=== PATIENT | female | born 1965 | race Caucasian/White ===

== ENCOUNTER → 2023-12-10 07:00 | Outpatient (REF) | payer OTHER, SELFPAY | LOC: HWRAD 07:00 | PROVIDERS: ATTENDING PHYSICIAN Nurse Practitioner Adult Health | DX: M25.431 Effusion, right wrist (principal); Z12.31 Encounter for screening mammogram for malignant neoplasm of breast | CPT/HCPCS: 76882; 77063; 77067 ==

== ENCOUNTER → 2024-03-10 07:00 | Outpatient (REF) | payer OTHER, SELFPAY | LOC: HWRAD 07:00 | PROVIDERS: ATTENDING PHYSICIAN Nurse Practitioner Adult Health | DX: G44.209 Tension-type headache, unspecified, not intractable (principal); M54.2 Cervicalgia | CPT/HCPCS: 72050 ==

== ENCOUNTER → 2024-08-09 18:00 | Outpatient (REF) | payer OTHER, SELFPAY | LOC: RAD 18:00 | PROVIDERS: ATTENDING PHYSICIAN Nurse Practitioner Adult Health | DX: R07.81 Pleurodynia (principal); R07.9 Chest pain, unspecified; Z91.81 History of falling | CPT/HCPCS: 71101 ==

== ENCOUNTER 2024-12-31 17:58 | Emergency (ER) | payer OTHER, SELFPAY ==
[2024-12-31 18:00] VITALS: BP 160/95
[2024-12-31 18:38] LABS: % Basophils 1.4 % (0-2); % Eosinophils 1.9 % (0-6); % Immature Granulocytes 0.2 % (0-0.5); % Lymphocytes 27.4 % (20.5-51.1); % Monocytes 9.8 % (1.7-9.3); % Neutrophils 59.3 % (42.2-75.2); Absolute Basophils 0.1 10^3/uL (0-0.2); Absolute Eosinophils 0.1 10^3/uL (0-0.7); Absolute Lymphocytes 1.6 10^3/uL (1.2-3.4); Absolute Monocytes 0.6 10^3/uL (0.1-0.6); Absolute Neutrophils 3.4 10^3/uL (1.4-6.5); Hematocrit 40.6 % (37.0-47.0); Hemoglobin 14.2 g/dL (12.0-16.0); Mean Corpuscular Hgb 30.3 pg (27.0-31.0); Mean Corpuscular Volume 86.6 fL (81.0-99.0); Mean Platelet Volume 8.7 fL (7.4-10.4); Nucleated Red Blood Cells % 0 %; Platelet Count 214 10^3/uL (130-400); Red Blood Cell Count 4.69 10^6/uL (4.20-5.40); Red Cell Dist. Width 11.7 % (11.5-14.5); White Blood Cell Count 5.7 10^3/uL (4.8-10.8)
[2024-12-31 18:53] LABS: ALT (SGPT) 26 U/L (0-35); AST (SGOT) 25 U/L (14-36); Alkaline Phosphatase 76 U/L (38-126); Blood Urea Nitrogen 17 mg/dl (7-17); Calcium 9.5 mg/dl (8.4-10.2); Carbon Dioxide 25 mmol/L (22-30); Chloride 107 mmol/L (98-107); Glucose 99 mg/dl (70-99); Potassium 3.8 mmol/L (3.5-5.1); Sodium 140 mmol/L (135-145); Total Bilirubin 0.3 mg/dl (0.2-1.3); Total Protein 7.1 g/dl (6.3-8.2); eGFR > 60.00
[2024-12-31 19:03] LABS: Troponin I < 0.012 ng/ml
--- NOTE | 2024-12-31 22:02 | ED.GENMED ---
History of Present Illness
General
Chief Complaint: Heart Rate Problem
Source: patient
Time Seen by Provider: 12/31/24 21:55
History of Present Illness
History of Present Illness:
59-year-old female presents to the emergency room complaining of palpitations. Patient states these occur randomly. She feels like her heart is racing though she does have a watch which measures her heart rate and it is not actually fast. She
sometimes feels like there is bands around her arms legs neck and chest. All of the symptoms are not present at the time of my evaluation. Patient denies significant caffeine use that she does drink some diet erika. She did not have any shortness
of breath.
Past History
Past History
ED Past Medical History: None
ED Past Surgical History: Gynecological and Orthopedic
Social History
Tobacco: Non-smoker
Phy Exam
Physical Exam
Physical Exam:
General: Awake, Alert, Oriented X3. No acute distress.
Vitals: unremarkable
Head: Atraumatic
Eyes: Pupils equal, EOMI
Throat: Airway intact, no exudates
Neck: Trachea midline, no thyromegaly
Lungs: Clear and equal b/l
Heart: Regular rate, no murmurs
Abd: Soft, Nontender, No pulsatile mass
Neuro: Nonfocal
Skin: Warm, dry, no rash
Extremities: pulses equal b/l, no edema
Course
Orders/Labs/Results
Orders:
Orders
12/31/24 18:05
ECG [Electrocardiogram (*1)] Urgent
Reason for Study: Palpitations
EKG- Treatment ONCE
12/31/24 18:15
Complete Blood Count/With Diff Urgent
Comprehensive Metabolic Panel Urgent
Troponin I Urgent
Abnormal Lab Results
12/31/24
18:15
Monocytes % 9.8 H %
(1.7-9.3)
12/31/24 18:15
12/31/24 18:15
Vital Signs
Initial and Last Documented VS:
Initial Vital Signs
Temp Pulse Resp BP Pulse Ox
98.5 F 82 16 160/95 100
12/31/24 18:00 12/31/24 18:00 12/31/24 18:00 12/31/24 18:00 12/31/24 18:00
Last Documented Vital Signs
Temp Pulse Resp BP Pulse Ox
98.5 F 82 16 160/95 100
12/31/24 18:00 12/31/24 18:00 12/31/24 18:00 12/31/24 18:00 12/31/24 22:03
MDM/Problems Addressed
Differential Diagnosis Includes:
Paroxysmal A-fib, PACs, PVCs
MDM/Problems Addressed:
Patient presents with intermittent palpitations. EKG here is normal. Her labs are normal. She is not having symptoms now.
*Pulse Oximetry
SaO2: 100
Oxygen Mode of Delivery: Room air
Patient hypoxic: no
*EKG
Heart Rate: 70
Rate: normal
Rhythm: sinus
Reeders: normal axis
Interval: normal interval
QRS Pattern: normal QRS
Ischemia: no ischemia
*Tennis Player Interpretation
Rate: normal
Interpretation: normal
Heart Rate: 70
Rhythm: sinus
*Critical Care Note
Total Time (30-74mins, 75-104mins- exclusive of procedures): Not Applicable
ED Attending Note
-
Portions of this chart may have been created with voice recognition software.� Occasional wrong word or��sound alike� substitutions may have occurred due to the inherent limitations of voice recognition software.
Discharge Plan
Departure
Patient Disposition: Home (Routine Discharge)
Date of Disposition: 12/31/24
Time of Disposition: 22:02
Patient with high blood pressure during this ER visit?: Yes
Condition: Good
Discharge Problem:
Heart palpitations
Instructions: Palpitations (DC), BLOOD PRESSURE
Prescriptions:
No Action
ibuprofen 600 MG tablet
600 mg PO Q6 Qty: 20 0RF
diazepam 5 MG tablet
5 mg PO TIDPRN PRN (Reason: Pain, spasm) Qty: 12 0RF
ondansetron 4 MG tablet,disintegrating
4 mg PO TIDPRN PRN (Reason: nausea/vomiting) Qty: 12 0RF
Referrals:
Jose Luis Alvarez MD [Active, Cardiology]
Esha Collins CRNP [Family Provider, Internal Medicine]
Activity Restrictions/Additional Instructions:
Avoid caffeine products. Follow-up with your family doctor but also have given you contact information for one of our cardiology groups.
Interventions
Interventions:
*Risk Screen - Suicide Last Done: 12/31/24 20:53
*General Assessment Last Done: 12/31/24 20:53
ED- Pulmonary Assessment Last Done: 12/31/24 20:53
ED- Neurological Assessment Last Done: 12/31/24 20:53
ED- Cardiac Assessment Last Done: 12/31/24 20:53
ED Swallowing Screen Last Done: 12/31/24 20:53
Discharge Date and Time
Print Language: TONGAN
[2024-12-31 22:13] VITALS: BP 131/74
== END 2024-12-31 22:18 | disposition home or self-care (01) ==
LOC: EMR 17:58
PROVIDERS: Emergency Medicine; EMERGENCY PHYSICIAN Emergency Medicine; FAMILY PHYSICIAN Nurse Practitioner Adult Health
DX: R00.2 Palpitations (principal)
CPT/HCPCS: 99283; 80053; 84484; 85025; 93005

== ENCOUNTER → 2025-04-11 07:59 | Outpatient (REF) | payer OTHER, SELFPAY | LOC: HWWDC 07:59 | PROVIDERS: ATTENDING PHYSICIAN Nurse Practitioner Adult Health | DX: Z13.820 Encounter for screening for osteoporosis (principal); Z12.31 Encounter for screening mammogram for malignant neoplasm of breast | CPT/HCPCS: 77063; 77067; 77080 ==